=== PATIENT | female | born 1940 | race Caucasian/White ===

== ENCOUNTER 2021-02-01 15:22 | Outpatient (REF) | payer MEDICARE, SELFPAY ==
--- NOTE | ~2021-02-01 | MM_ITS ---
EXAMINATION: MM SCREENING DIGITAL BREAST TOMOSYNTHESIS, BILATERAL CLINICAL INFORMATION: Screening. Asymptomatic. The lifetime risk of breast cancer based on the Tyrer-Cuzick Model is 2%. COMPARISON: Mammography: 10/29/2019, 08/28/2018, 08/10/2017, 06/11/2014 TECHNIQUE: Digital breast tomosynthesis is performed in both the craniocaudal and mediolateral oblique views along with computer-aided detection (CAD). Synthesized 2D images are generated from the tomosynthesis. FINDINGS: There are scattered areas of fibroglandular density (ACR BI-RADS breast composition Category b). There are no significant changes from prior studies. Again, there is mild asymmetry of the breasts, left slightly larger. The parenchymal pattern is similar to prior exams. There is no developing density or interval mass or architectural abnormality. There are scattered bilateral benign round and coarse and ductal secretory calcifications. No suspicious calcifications. The axilla and skin contours are unremarkable. MM/MM tomosynthesis screening BI IMPRESSION: No mammographic evidence of malignancy. ASSESSMENT: BI-RADS 2: Benign RECOMMENDATION: Routine annual mammography screening. This patient's information was entered into a reminder system with a target due date for their next mammogram.
== END 2021-02-01 15:23 | disposition home or self-care (01) ==
LOC: HO.MAMMO 15:22
PROVIDERS: PCP Internal Medicine; Visit Provider Internal Medicine
DX: Z12.31 Encounter for screening mammogram for malignant neoplasm of breast (principal)
CPT/HCPCS: 77063; 77067

== ENCOUNTER 2022-02-02 15:41 | Outpatient (REF) | payer MEDICARE, SELFPAY ==
--- NOTE | ~2022-02-02 | MM_ITS ---
EXAMINATION: MM SCREENING DIGITAL BREAST TOMOSYNTHESIS, BILATERAL CLINICAL INFORMATION: Screening. Asymptomatic. The lifetime risk of breast cancer based on the Tyrer-Cuzick Model is 2%. COMPARISON: Mammography: 02/01/2021, 10/29/2019, 08/28/2018 TECHNIQUE: Digital breast tomosynthesis is performed in both the craniocaudal and mediolateral oblique views along with computer-aided detection (CAD). Synthesized 2D images are generated from the tomosynthesis. FINDINGS: There are scattered areas of fibroglandular density (ACR BI-RADS breast composition Category b). There are no significant masses, abnormal calcifications, or other abnormalities. Parenchymal pattern is similar to prior studies. No developing density. No architectural abnormality. Numerous bilateral scattered punctate and coarse round calcifications and scattered ductal secretory calcifications are again demonstrated. There are no significant changes from prior studies. MM/MM tomosynthesis screening BI IMPRESSION: No mammographic evidence of malignancy. ASSESSMENT: BI-RADS 2: Benign RECOMMENDATION: Routine annual mammography screening. This patient's information was entered into a reminder system with a target due date for their next mammogram.
== END 2022-02-02 15:42 | disposition home or self-care (01) ==
LOC: HO.MAMMO 15:41
PROVIDERS: Visit Provider Internal Medicine
DX: Z12.31 Encounter for screening mammogram for malignant neoplasm of breast (principal)
CPT/HCPCS: 77063; 77067

== ENCOUNTER 2023-03-24 13:28 | Outpatient (REF) | payer MEDICARE, SELFPAY ==
--- NOTE | ~2023-03-24 | MM_ITS ---
EXAMINATION: MM SCREENING DIGITAL BREAST TOMOSYNTHESIS, BILATERAL CLINICAL INFORMATION: Screening. Asymptomatic. The lifetime risk of breast cancer based on the Tyrer-Cuzick Model is 0.7%. COMPARISON: Mammography: This study is compared with prior exams dating back to 2019. TECHNIQUE: Digital breast tomosynthesis is performed in both the craniocaudal and mediolateral oblique views along with computer-aided detection (CAD). Synthesized 2D images are generated from the tomosynthesis. FINDINGS: There are scattered areas of fibroglandular density (ACR BI-RADS breast composition Category b). There are no significant masses, abnormal calcifications, or other abnormalities. There are scattered benign calcifications in each breast. MM/MM tomosynthesis screening BI IMPRESSION: No mammographic evidence of malignancy. ASSESSMENT: BI-RADS BI-RADS 2 - Benign Findings RECOMMENDATION: Routine annual mammography screening. 1 year F/U This examination should not preclude the clinical evaluation of a suspicious palpable abnormality. This patient's information was entered into a reminder system with a target due date for their next mammogram.
== END 2023-03-24 13:29 | disposition home or self-care (01) ==
LOC: HO.MAMMO 13:28
PROVIDERS: PCP Internal Medicine; Visit Provider Internal Medicine
DX: Z12.31 Encounter for screening mammogram for malignant neoplasm of breast (principal)
CPT/HCPCS: 77063; 77067

== ENCOUNTER → 2023-03-24 13:30 | Outpatient (BNV) | payer MEDICARE, SELFPAY | PROVIDERS: PCP Internal Medicine; Visit Provider Radiology Diagnostic Radiology | DX: Z12.31 Encounter for screening mammogram for malignant neoplasm of breast (principal) | CPT/HCPCS: 77063; 77067 ==

== ENCOUNTER 2023-09-13 13:20 | Outpatient (REF) | payer MEDICARE, SELFPAY ==
--- NOTE | ~2023-09-13 | MM_ITS ---
EXAMINATION: BONE DENSITOMETRY CLINICAL INDICATION: Osteopenia. COMPARISON: Baseline BD dated 02/26/2008 for the spine and left hip; this is the baseline for the left forearm radius 33%. TECHNIQUE: Using a [employer] DXA System (software version: 13.1) manufactured by [employer], dual-energy x-ray absorptiometry was performed of the lumbar spine and left hip and left forearm radius 33%. The images are of good technical quality. Summary results are attached. FINDINGS: LEFT FEMUR, NECK: Current: BMD 0.871 g/cm2, Z-score 1.2, T-score -1.2, osteopenia. Baseline: BMD 1.092 g/cm2. LEFT FEMUR, TOTAL: Current: BMD 0.923 g/cm2, Z-score 1.6, T-score -0.7, normal, 20.8% decrease from baseline (<5% change is not significant). Baseline: BMD 1.166 g/cm2. AP SPINE L1-L4: Current: BMD 1.121 g/cm2, Z-score 1.4, T-score -0.5, normal, 5.3% decrease from baseline (<5% change is not significant). Baseline: BMD 1.184 g/cm2. LEFT FOREARM RADIUS 33%: BMD 0.676 g/cm2, Z-score 0.8, T-score -2.3, osteopenia. IDENTIFIED RISK FACTORS: Menopause, secondary osteoporosis. HISTORY OF FRACTURE: None listed. MEDICATIONS: None listed. MM/XR DEXA axial skeleton IMPRESSION: 1. DIAGNOSIS: Osteopenia based on the lowest T-score value of -2.3 in the forearm radius 33% applying World Health Organization criteria. 2. 10-YEAR FRACTURE RISK PREDICTION, FRAX: Major osteoporotic fracture (clinical spine, forearm, hip or shoulder) 12.6%. Hip fracture 3.1%. 3. Treatment Recommendations: NOF guidelines recommend consideration for treatment in postmenopausal women and men age 50 and older presenting with the following: -A hip or vertebral (clinical or morphometric) fracture. -T-score less than or equal to -2.5 at the femoral neck or spine after appropriate evaluation to exclude secondary causes. -Low bone mass at the hip or spine and a 10-year fracture probability by FRAX of greater than or equal to 3% for hip fracture or greater than or equal to 20% for major osteoporotic fracture based on the [place] adapted WHO algorithm. 4. Other Recommendations: All treatment decisions require clinical judgment and consideration of individual patient factors, including patient preferences, comorbidities, previous drug use, risk factors not captured in the FRAX model (e.g. frailty, falls, vitamin D deficiency, increased bone turnover, interval significant decline in bone density) and possible under or overestimation of fracture risk by FRAX. Additional medical evaluation for secondary cause of low bone mineral density may be appropriate. FUTURE SCAN RECOMMENDATION: People with diagnosed cases of osteoporosis or at high risk for fracture should have regular bone mineral density tests. For patients eligible for Medicare, routine testing is allowed once every 2 years. The testing frequency can be increased to one year for patients who have rapidly progressing disease, those who are receiving or discontinuing medical therapy to restore bone mass, or have additional risk factors.
== END 2023-09-13 13:21 | disposition home or self-care (01) ==
LOC: HO.MAMMO 13:20
PROVIDERS: PCP Internal Medicine; Visit Provider Internal Medicine
DX: Z13.820 Encounter for screening for osteoporosis (principal); Z78.0 Asymptomatic menopausal state; M85.89 Other specified disorders of bone density and structure, multiple sites
CPT/HCPCS: 77080

== ENCOUNTER 2024-03-27 13:14 | Outpatient (REF) | payer MEDICARE, SELFPAY ==
--- NOTE | ~2024-03-27 | MM_ITS ---
EXAMINATION: MM SCREENING DIGITAL BREAST TOMOSYNTHESIS, BILATERAL CLINICAL INFORMATION: Screening. Asymptomatic. COMPARISON: Mammography: This study is compared with prior exams dating back to 2019. TECHNIQUE: Digital breast tomosynthesis is performed in both the craniocaudal and mediolateral oblique views along with computer-aided detection (CAD). Synthesized 2D images are generated from the tomosynthesis. FINDINGS: There are scattered areas of fibroglandular density (ACR BI-RADS breast composition Category b). There are no significant masses, abnormal calcifications, or other abnormalities. There are bilateral benign calcifications in each breast. These are unchanged. MM/MM tomosynthesis screening BI IMPRESSION: No mammographic evidence of malignancy. ASSESSMENT: BI-RADS BI-RADS 2 - Benign Findings RECOMMENDATION: Routine annual mammography screening. 1 year F/U This examination should not preclude the clinical evaluation of a suspicious palpable abnormality. This patient's information was entered into a reminder system with a target due date for their next mammogram. Electronically signed by: Pam Wilhelm MD 04/19/2024 12:14 PM EDT
== END 2024-03-27 13:15 | disposition home or self-care (01) ==
LOC: HO.MAMMO 13:14
PROVIDERS: PCP Internal Medicine; Visit Provider Internal Medicine
DX: Z12.31 Encounter for screening mammogram for malignant neoplasm of breast (principal)
CPT/HCPCS: 77063; 77067

== ENCOUNTER → 2024-03-27 13:15 | Outpatient (BNV) | payer MEDICARE, SELFPAY | PROVIDERS: PCP Internal Medicine; Visit Provider Radiology Diagnostic Radiology | DX: Z12.31 Encounter for screening mammogram for malignant neoplasm of breast (principal) | CPT/HCPCS: 77063; 77067 ==

== ENCOUNTER 2025-05-14 13:51 | Outpatient (REF) | payer MEDICARE, SELFPAY ==
--- OUTSIDE RECORDS SUMMARY | 2023-11-17 07:00 | XMS_ITS ---
Author Organization [facility] Address [address] [place] [address] Care Team Providers Care Customer Advisor Specialist Name Role Phone Inocencio Ponce MD Primary Care Provider Unavailab Kris Orosco Unavailable [phone] Lorenz Encounters Encounter Location Date Provider Diagnosis [address] [address] 11/17/2023 Kris James Plan Of Treatment No Information Progress Notes * Josselyn VELASCO EDOB: [birth year] (84 yo F)Acc No.[id number]:11/17/2023 Progress Note Patient: Josselyn MONTEIRO Provider: Marielena James DPM :1940 A ge:82 Y S ex:Female Date:11/17/2023 Address:[facility] [place], [id number] Pcp:Inocencio Ponce MD Subjective: * Chief Complaints: * [address] Lorenz[address] * Medical History: Objective: * Vitals: Assessment: Plan: * Treatment: * Images: * The named appointment provid er may or may not be the originator of this progress note, and it is not deemed complete until electronically signed by the appointment provider. Sign off status: Pending * Provider: Marielena James DPM Date: 11/17/2023 Generated for Printi ng/Faesdrasg/eTransmitting on: 05/14/2025 04:22 PM EDT
--- OUTSIDE RECORDS SUMMARY | 2025-01-29 06:50 | XMS_ITS ---
Author Organization [facility] Address [facility] [place], [place] [id number] Care Team Providers Care Civil Lawyer Name Role Phone GIL SOLIZ Primary Care Provider REASON FOR VISIT () CT scan Results Encounters Encounter Location Date Provider Diagnosis [facility] [address] [place] [address] 01/29/2025 GIL SOLIZ PLAN OF TREATMENT Next Appt Details Provider Name:GIL SOLIZ , 07/04/2025 01:00:00 PM, [address] [place], [phone],
--- OUTSIDE RECORDS SUMMARY | 2025-02-14 10:12 | XMS_ITS ---
Author Organization [facility] Address [address] [place], [place] [id number] Care Team Providers Care Scale Model Maker Name Role Phone GIL SOLIZ Primary Care Provider [phone] REASON FOR VISIT Syringe/[place] Refills MEDICATIONS Medication SIG (Take, Route, Frequency, Duration) Notes Start Date End Date Status Syringe/Needle (Disp) 25G X 1 3 ML as directed intrathecal by MD once a month for 90 day(s) Active Encounters Encounter Location Date Provider Diagnosis [address] [address] 02/14/2025 GIL MARTÍNEZ B12 deficiency E53.8 ASSESSMENTS Encounter Date Diagnosis Assessment Notes Treatment Notes Treatment Clinical Notes Section Notes 02/14/2025 B12 deficiency (ICD-10 - E53.8) PLAN OF TREATMENT Medication Medication Name Sig Start Date Stop Date Notes Syringe/Needle (Disp) 25G X 1 3 ML as directed intrathecal by MD once a month for 90 day(s) Next Appt Details Provider Name:GIL SOLIZ , 07/04/2025 01:00:00 PM, [address] [place] [address], [phone],
--- OUTSIDE RECORDS SUMMARY | 2025-03-11 09:30 | XMS_ITS ---
Author Organization [facility] Address [address] [place], [place] [id number] Care Team Providers Care Card Assembler Name Role Phone GIL SOLIZ Primary Care Provider ALLERGIES Allergen (clinical drug ingredient) Drug/Non Drug Allergy documented on EMR Reaction Allergy Type Onset Date Status codeine Codeine Codeine Drug Allergy 12/01/2008 Active trazodone traZODone agitation Drug Allergy Active REASON FOR VISIT 41/ AWV MEDICATIONS Medication SIG (Take, Route, Frequency, Duration) Notes Start Date End Date Status Synthroid 100 MCG 1 tablet in the morn ing on an empty stomach Orally Once a day Active amLODIPine Besylate 5 MG 1 tablet Orally Once a day Active Atorvastatin Calcium 20 MG 1 tablet Orally Once a day Active Lisinopril 40 MG 1 tablet Orally Once a day Active Syringe/Needle (Disp) 25G X 1 3 ML as directed intrathecal by MD once a month for 90 day(s) Active Sertraline HCl 50 MG 1 tablet Orally Onc e a day for 90 days Active Advair HFA 45-21 MCG/ACT 2 puffs Inhalat ion Twice a day Active Cyanocobalamin 1000 MCG/ML INJECT 1,000 MCG BY INTRAMUSCULAR ROUTE EVERY DAY X 1 WEEK THEN WEEKLY X 4WEEKS THEN ONCE A MONTH for 90 Active traMADol HCl 50 MG 1 tablet as needed Orally 3 times daily for 7 days 12/17/2024 Not-Taking Albuterol Sulfate (2.5 MG/3ML) 0.083% 3 mL as needed Inhalation every 6 hrs 05/30/2024 Active Furosemide 20 MG 1 tablet Orally Once a day for 90 days Active Acetaminophen 500 MG 2 tablets as needed Orally Twice a day Active SOCIAL HISTORY Tobacco Use: Social History Observation Description Date Details (start date - stop date) Former Smoker NA - NA Sex Assigned At : Social History Observation Description Sex Assigned At Unknown Smoking Question Answer Notes Are you a: former smoker How long has it been since you last smoked? 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) Active confirmed [id number] VITAL SIGNS Height 62.50 in 03/11/2025 Weight 141 lbs 03/11/2025 Blood pressure systolic 122 mm Hg 03/11/20 25 Blood pressure diastolic 72 mm Hg 025 BMI 25.38 kg/m2 03/11/2025 Encounters Encounter Location Date Provider Diagnosis [facility] [address] [place] [address] 03/11/2025 GIL LA VALLE Chronic obstructive pulmonary disease, unspecified COPD type J44.9 ; Acquired hypothyroidism E03.9 ; Mixed hyperlipidemia E78.2 ; Degeneration of intervertebral disc of lumbar region with discogenic back pain and lower extremity pain M51.362 ; Essential (primary) hypertension I10 and Encounter for general adult medical examination with abnormal findings Z00.01 ASSESSMENTS Encounter Date Diagnosis Assessment Notes Treatment Notes Treatment Clinical Notes Section Notes 03/11/2025 Chronic obstructive pulmonary disease, unspecified COPD type (ICD-10 - J44.9) 1. COPD: Stable on current bronchodilators . Will call with any signs of flares 2. Hypothyroidism: Will update TSH and current level of supplementation 3. Hyperlipidemia: Will update lipids on current atorvastatin 4. Lumbar degenerative disc disease: Stable with periodic injections at SV pain. 5. Hypertension: Stable on present regimen. No changes made today 6. Routine healthcare maintenance: She will update fasting blood work. She will set up her mammogram for next month at [place]. She is up-to-date with vaccinations 03/11/2025 Acquired hypothyroidism (ICD-10 - E03.9) 1. COPD: Stable on current bronchodilators . Will call with any signs of flares 2. Hypothyroidism: Will update TSH and current level of supplementation 3. Hyperlipidemia: Will update lipids on current atorvastatin 4. Lumbar degenerative disc disease: Stable with periodic injections at SV pain. 5. Hypertension: Stable on present regimen. No changes made today 6. Routine healthcare maintenance: She will update fasting blood work. She will set up her mammogram for next month at [place]. She is up-to-date with vaccinations 03/11/2025 Mixed hyperlipidemia (ICD-10 - E78.2) 1. COPD: Stable on current bronchodilators . Will call with any signs of flares 2. Hypothyroidism: Will update TSH and current level of supplementation 3. Hyperlipidemia: Will update lipids on current atorvastatin 4. Lumbar degenerative disc disease: Stable with periodic injections at SV pain. 5. Hypertension: Stable on present regimen. No changes made today 6. Routine healthcare maintenance: She will update fasting blood work. She will set up her mammogram for next month at [place]. She is up-to-date with vaccinations 03/11/2025 Degeneration of intervertebral disc of lumbar region with discogenic back pain and lower extremity pain (ICD-10 - M51.362) 1. COPD: Stable on current bronchodilators . Will call with any signs of flares 2. Hypothyroidism: Will update TSH and current level of supplementation 3. Hyperlipidemia: Will update lipids on current atorvastatin 4. Lumbar degenerative disc disease: Stable with periodic injections at SV pain. 5. Hypertension: Stable on present regimen. No changes made today 6. Routine healthcare maintenance: She will update fasting blood work. She will set up her mammogram for next month at [place]. She is up-to-date with vaccinations 03/11/2025 Essential (primary) hypertension (ICD-10 - I10) 1. COPD: Stable on current bronchodilators . Will call with any signs of flares 2. Hypothyroidism: Will update TSH and current level of supplementation 3. Hyperlipidemia: Will update lipids on current atorvastatin 4. Lumbar degenerative disc disease: Stable with periodic injections at SV pain. 5. Hypertension: Stable on present regimen. No changes made today 6. Routine healthcare maintenance: She will update fasting blood work. She will set up her mammogram for next month at [place]. She is up-to-date with vaccinations 03/11/2025 Encounter for general adult medical examination with abnormal findings (ICD-10 - Z00.01) 1. COPD: Stable on current bronchodilators . Will call with any signs of flares 2. Hypothyroidism: Will update TSH and current level of supplementation 3. Hyperlipidemia: Will update lipids on current atorvastatin 4. Lumbar degenerative disc disease: Stable with periodic injections at SV pain. 5. Hypertension: Stable on present regimen. No changes made today 6. Routine healthcare maintenance: She will update fasting blood work. She will set up her mammogram for next month at [place]. She is up-to-date with vaccinations PLAN OF TREATMENT Medication Medication Name Sig Start Date Stop Date Notes Synthroid 100 MCG 1 tablet in the morn ing on an empty stomach Orally Once a day amLODIPine Besylate 5 MG 1 tablet Orally Once a day Atorvastatin Calcium 20 MG 1 tablet Orally Once a day Lisinopril 40 MG 1 tablet Orally Once a day Advair HFA 45-21 MCG/ACT 2 puffs Inhalat ion Twice a day Albuterol Sulfate (2.5 MG/3M L) 0.083% 3 mL as needed Inhalation every 6 hrs 05/30/2024 Next Appt Details Follow Up: 3 Months, Reason: Provider Name:GIL SOLIZ , 07/04/2025 01:00:00 PM, [address] [place] [address], [phone], Progress Notes * Examination Category Sub-Category Detail Notes Category Not es General Examination HEENT: PERRLA, EOMI bilatera lly, nose clear Neck: supple, no lymphaden opathy, no thyromegaly Heart: RSR, normal S1S2 Lungs: clear to auscultatio n Abdomen: soft, non tender/non distended, no rebound tenderness, no guarding or rigidity Extremities: no edema General Appearance no apparent distress , pleasant Skin: normal, no rash Neuro alert and oriented x 3, gait normal Oral cavity: no lesions Peripheral pulses: Bilateral radial pre sent, Bilateral posterior tibial present, BilateralCarotids present No Bruits, Bilateral radial present Back: no CVA tenderness, s traight leg raise normal, , no spinal tenderness Lymphatics No nodes in neck Psych: oriented X 3, affect normal
--- OUTSIDE RECORDS SUMMARY | 2025-03-11 10:00 | XMS_ITS ---
Author Organization [facility] Address [address], [place] [phone] Care Team Providers Care Assistant Farm Operations Manager Name Role Phone GIL SOLIZ Primary Care Provider ALLERGIES Allergen (clinical drug ingredient) Drug/Non Drug Allergy documented on EMR Reaction Allergy Type Onset Date Status codeine Codeine Codeine Drug Allergy 12/01/2008 Active trazodone traZODone agitation Drug Allergy Active REASON FOR VISIT 1 yr follow up (AWV w/nursing 1st) SOCIAL HISTORY Tobacco Use: Social History Observation Description Date Details (start date - stop date) Former Smoker NA - NA Sex Assigned At : Social History Observation Description Sex Assigned At Unknown Smoking Question Answer Notes Are you a: former smoker How long has it been since you last smoked? > 10 years Alcohol Screen Question Answer Notes Did you have a drink containing alcohol in the p ast year? No Points 0 Interpretation Negative VITAL SIGNS Height 62.50 in 03/11/2025 Weight 141 lbs 03/11/2025 Blood pressure systolic 122 mm Hg 03/11/20 25 Blood pressure diastolic 72 mm Hg 025 BMI 25.38 kg/m2 03/11/2025 Encounters Encounter Location Date Provider Diagnosis [facility] [address] [place] [address] 03/11/2025 GIL SOLIZ Medicare annual wellness visit, subsequent Z00.00 ASSESSMENTS Encounter Date Diagnosis Assessment Notes Treatment Notes Treatment Clinical Notes Section Notes 03/11/2025 Medicare annual wellness visit, subsequent (ICD-10 - Z00.00) AWV reviewed with pt PLAN OF TREATMENT Treatment Notes Assessment Notes Medicare annual wellness visit, subseque nt AWV reviewed with pt Next Appt Details Follow Up: prn, Reason: Provider Name:GIL SOLIZ , 07/04/2025 01:00:00 PM, [address] [facility], [place], [address], History and Physical Notes * HPI (History of Present Illness) Category Sub-Category Detail Notes Category Not es Depression Screening PHQ-9 Little inte rest or pleasure in doing things: Not at all Feeling down,depressed or hopeless: Lucretia ral days Trouble falling or staying asleep, or sl eeping too much: Several days Feeling tired or having little energy: S everal days Poor appetite or overeating: Not at all Feeling bad about yourself o r that you are a failure or have let yourself or your family down: Several days Trouble concentrating on thi ngs, such as reading the newspaper or watching television: Not at all Moving or speaking so slowly that other people could have notice. Or the opposite of being so fidgety or restless that you have been moving around a lost more that usual: Not at all Thoughts that you would be b vinod off , or of hurting yourself in some way: Not at all Total Score: 4 Interpretation: Minimal Depression
--- OUTSIDE RECORDS SUMMARY | 2025-03-13 02:22 | XMS_ITS ---
Author Organization [facility] Address [address] [place] [id number] Care Team Providers Care Guest Specialist Name Role Phone GIL SOLIZ Primary Care Provider REASON FOR VISIT Labs Encounters Encounter Location Date Provider Diagnosis [address] [address] 03/13/2025 GIL SOLIZ PLAN OF TREATMENT Next Appt Details Provider Name:GIL SOLIZ , 07/04/2025 01:00:00 PM, [address] [place], [address],
--- NOTE | ~2025-05-14 | MM_ITS ---
EXAMINATION: MM SCREENING DIGITAL BREAST TOMOSYNTHESIS, BILATERAL CLINICAL INFORMATION: Screening. Asymptomatic. COMPARISON: Comparison made to multiple prior, most recent March 27, 2024, and most remote August 10, 2017. TECHNIQUE: Digital breast tomosynthesis is performed in mediolateral oblique and craniocaudal views along with computer-aided detection (CAD). Synthesized 2D images are generated from the tomosynthesis. FINDINGS: BREAST COMPOSITION: There are scattered areas of fibroglandular density. RIGHT BREAST: Asymmetry in the upper breast middle depth at 8 cm from the nipple on the MLO view. No suspicious calcifications are seen. LEFT BREAST: No significant masses, suspicious calcifications or other abnormalities are seen. MM/MM tomosynthesis screening BI IMPRESSION: RIGHT BREAST: Asymmetry in the upper breast middle depth. LEFT BREAST: Negative, no mammographic evidence of malignancy. Normal interval follow-up is recommended in 12 months. ASSESSMENT: BI-RADS: Category 0: Incomplete - Need additional Imaging Evaluation RECOMMENDATION: 1. Additional views of the right breast 2. Targeted ultrasound if warranted after review of the additional views. 3. Radiology department staff will contact the patient for additional imaging. FOLLOW-UP: Additional Imaging required This examination should not preclude the clinical evaluation of a suspicious palpable abnormality. This patient's information was entered into a reminder system with a target due date for their next mammogram. Electronically signed by: Randolph Funk MD 05/16/2025 06:49 PM EDT
--- OUTSIDE RECORDS SUMMARY | 2025-05-14 16:21 | XMS_ITS | Clinical Summary ---
Author Organization [facility] Address [address] [place] [address] Care Team Providers Care Sensitometrist Name Role Phone Inocencio Ponce MD Primary Care Provider Unavail able Allergies Active Allergy Reactions Criticality Noted Date Comments Codeine Nausea And Vomiting 09/15/2021 Medications Medication Sig Dispensed Refills Start Date End Date Status amLODIPine (NORVASC) tablet 5 mg 0 06/26/2021 Active atorvastatin (LIPITOR) tablet 20 mg 0 08/30/2021 Active furosemide (LASIX) 20 MG tablet 0 08/17/2021 Active HYDROcodone-aceta minophen (NORCO) 5-325 MG per tablet hydrocodone 5 mg-acetaminophen 325 mg tablet TAKE 1 TABLET EVERY 4 TO 6 HOURS NEEDED 0 Active Synthroid 100 MCG tablet 0 07/27/2021 Active lisinopril (PRINIVIL,ZESTRIL ) tablet 40 mg 0 07/28/2021 Active methocarbamol (ROBAXIN) 500 MG tablet methocarbamol 500 mg tablet TAKE 1 TABLET BY MOUTH 3 TIMES A DAY NEEDED 0 Acti ve naproxen (NAPROSYN) 500 MG tablet 0 08/17/2021 Active sertraline (ZOLOFT) 50 MG tablet 0 07/28/2021 Active sulfamethoxazole- trimethoprim (BACTRIM DS) 800-160 MG per tablet sulfamethoxazole 800 mg-trimethoprim 160 mg tablet TAKE 1 TABLET BY MOUTH EVERY 12 HOURS FOR 5 DAYS 0 Active timolol (TIMOPTIC) 0.5 % ophthalmic solution timolol 0.5 % eye drops INSTILL 1 DROP INTO AFFECTED EYE(S) BY OPHTHALMIC ROUTE 2 TIMES PER DAY 0 Active Family History Medical History Relation Name Comments Cancer Father Arthritis Mother Cancer Mother Hyperlipidemia Mother Relation Name Status Comments Father Mother Social History Tobacco Use Types Packs/Day Years Used Date Smoking Tobacco: Former Smokeless Tobacco: Never Alcohol Use Standard Drinks/Week Comments Never 0 (1 standard drink = 0.6 oz pur e alcohol) Sex and Gender Information Value Date Recorded Sex Assigned at Not on file Gender Identity Not on file Sexual Orientation Not on file Job Start Date Occupation Industry Not on file Not on file Not on file Last Filed Vital Signs Vital Sign Reading Time Taken Comments Blood Pressure - - Pulse - - Temperature - - Respiratory Rate - - Oxygen Saturation - - Inhaled Oxygen Concentration - - Weight 70.3 kg (155 lb) 09/15/2021 11:24 AM EST Height 162.6 cm (5' 4 ) 09/15/2021 11:24 AM EST Body Mass Index 26.61 09/15/2021 11:24 AM EST Plan of Treatment Health Maintenance Due Date Last Done Comments COVID-19 Vaccine (#1) 06/28/1941 Depression Screening 1950 Preventative Health Evaluation 1956 DTap / Tdap / Td (1 - Tdap) 1957 Shingrix-Zoster Vaccine (1 of 2) 1988 Fall Risk Assessment 12/27/2003 Osteoporosis Screening (DEXA Scan) 12/27/2003 Pneumococcal Vaccine (1 of 1 - PCV) 12/27/2003 RSV Adult > 60+ Yrs or Pregn ant (1 - 1-dose 75+ series) 2013 Influenza Vaccine (#1) 2025 Hepatitis B Vaccines Aged Out No long er eligible based on patient's age to complete this topic RSV Ped < 20 months Aged Out No longe r eligible based on patient's age to complete this topic Care Teams Sensitometrist Relationship Specialty Start Date End Date Inocencio Ponce MD PCP - General Internal Medicine 08/19/21
--- OUTSIDE RECORDS SUMMARY | 2025-05-14 16:22 | XMS_ITS | Patient Health Record ---
Author Organization [facility] Address [address] [place], [place] [id number] Care Team Providers Care Counter Person Name Role Phone GIL SOLIZ Primary Care Provider [phone] [facility], NURSING Unavailable [phone] ALLERGIES Allergen (clinical drug ingredient) Drug/Non Drug Allergy documented on EMR Reaction Allergy Type Onset Date Status codeine Codeine Codeine Drug Allergy 12/01/2008 Active trazodone traZODone agitation Drug Allergy Active REASON FOR REFERRAL No Information MEDICATIONS Medication SIG (Take, Route, Frequency, Duration) Notes Start Date End Date Status Synthroid 100 MCG 1 tablet in the morn ing on an empty stomach Orally Once a day Active Sertraline HCl 50 MG 1 tablet Orally Onc e a day for 90 days Active Advair HFA 45-21 MCG/ACT 2 puffs Inhalat ion Twice a day Active Cyanocobalamin 1000 MCG/ML INJECT 1,000 MCG BY INTRAMUSCULAR ROUTE EVERY DAY X 1 WEEK THEN WEEKLY X 4WEEKS THEN ONCE A MONTH for 90 Active Atorvastatin Calcium 20 MG 1 tablet Orally Once a day Active amLODIPine Besylate 5 MG TAKE 1 TABLET B Y MOUTH EVERY DAY for 90 Active Lisinopril 40 MG 1 tablet Orally Once a day Active traMADol HCl 50 MG 1 tablet as needed Orally 3 times daily for 7 days 12/17/2024 Not-Taking Albuterol Sulfate (2.5 MG/3ML) 0.083% 3 mL as needed Inhalation every 6 hrs 05/30/2024 Active Furosemide 20 MG 1 tablet Orally Once a day for 90 days Active Acetaminophen 500 MG 2 tablets as needed Orally Twice a day Active Syringe/Needle (Disp) 25G X 1 3 ML as directed intrathecal by once a month for 90 day(s) Active IMMUNIZATIONS Vaccine Route Administration Date Status Comme nts Covid Unknown 06/13/2022 Administered Influenza, Fluarix Quad Unknown 06/03/2014 Administered Influenza, Fluzone HD 65+ IM Intramuscular 05/30/2024 Admi nistered Pfizer COVID-19,mRNA, LNP-S, PF, 30mcg/0.3mL dose Unknown 09/27/2020 Administered Pfizer COVID-19,mRNA, LNP-S, PF, 30mcg/0.3mL dose Unknown 10/19/2020 Administered Pneumococcal Prevnar 13 IM Intramuscular 09/04/2006 Admini stered Pneumococcal Prevnar 13 IM Intramuscular 06/10/2015 Admini stered Pneumococcal, PPV 23 Unknown 09/04/2006 Administered RonnicNMC24 IM Intramuscular 08/31/2023 Administered SARSCOV2 VAC BVL 3MCG/0.2ML Pfizer Unknown 07/26/2021 Administered Td (Tetanus Diphtheria) Unknown 12/03/2008 Administered Td (Tetanus Diphtheria) Unknown 05/17/2019 Administered TDAP Unknown 12/08/2024 Administered Zoster recombinant Unknown 06/12/2012 Administered SOCIAL HISTORY Tobacco Use: Social History Observation [...] ast year? No Points 0 Interpretation Negative PROBLEMS Problem Type ICD Code Onset Dates Problem Status W/U Status Risk SNOMED Code Notes Problem Acquired hypothyroidism (E03.9) Active confirmed 969304708 Problem Chronic obstructive pulmonary disease, unspecified COPD type (J44.9) Active confirmed 59215060 Problem Primary osteoarthritis of right knee (M17.11) Active confirmed 984230603215895 Problem Degeneration of intervertebral disc of lumbar region with discogenic back pain and lower extremity pain (M51.362) Active confirmed 67468183 Problem Essential (primary) hypertension (I10) 07/08/20 Active confirmed Essential hypertension (94205776) Problem Mixed hyperlipidemia (E78.2) 07/08/20 Active confirmed Mixed hyperlipidemia (603629292) VITAL SIGNS Blood pressure diastolic 72 mm Hg 03/11/2025 Height 62.50 in 03/11/2025 Blood pressure systolic 122 mm Hg 03/11/2025 Weight 141 lbs 03/11/2025 BMI 25.38 kg/m2 03/11/2025 Encounters Encounter Location Date Provider Diagnosis [address] [address] 05/30/2024 GIL SOLIZ Chronic obstructive pulmonary disease, unspecified COPD type J44.9 ; Essential (primary) hypertension I10 ; Primary osteoarthritis of right knee M17.11 and Hyponatremia E87.[address] [address] 05/30/2024 [facility] Encounter for administration of vaccine Z23 [address] [address] 06/02/2024 [place] [id number] 07/31/[address] [address] 07/31/2024 [place] COVID 079.[address] [address] 09/13/2024 GIL SOLIZ Pruritus L29.9 ; Chronic obstructive pulmonary disease, unspecified COPD type J44.9 and Essential (primary) hypertension I10 [address] [address] 12/10/[address] [address] 12/10/2024 GIL SOLIZ Skin tear of right upper arm without complication, initial encounter S41.111A ; Left foot pain M79.672 ; Fall, initial encounter W19.XXXA ; Essential (primary) hypertension I10 and Chronic obstructive pulmonary disease, unspecified COPD type J44.[address] [address] 12/10/[address] [address] 12/17/2024 GIL SOLIZ Disc degeneration, lumbar M51.[address] [address] 01/27/2025 [place] [address] [place] [address] 01/27/2025 [facility] Right flank pain R10 .9 ; Essential (primary) hypertension I10 and Chronic obstructive pulmonary disease, unspecified COPD type J44.[address] [address] 01/28/[address] [address] 01/29/[address] [address] 02/14/2025 [facility] B12 deficiency E53.[address] [address] 03/11/2025 [facility] Chronic obstructive pulmonary disease, unspecified COPD type J44.9 ; Acquired hypothyroidism E03.9 ; Mixed hyperlipidemia E78.2 ; Degeneration of intervertebral disc of lumbar region with discogenic back pain and lower extremity pain M51.362 ; Essential (primary) hypertension I10 and Encounter for general adult medical examination with abnormal findings Z00.[address] [address] 03/11/2025 [facility] Medicare annual wellness visit, subsequent Z00.[address] [address] 03/13/2025 [facility] ASSESSMENTS Encounter Date Diagnosis Assessment Notes Treatment Notes Treatment Clinical Notes Section Notes 02/14/2025 B12 deficiency (ICD-10 - E53.8) 01/27/2025 Right flank pain (ICD-10 - R10.9) 1. Right flank pain: Question possible stone. Question infection such as UTI or pyelonephritis. Question possibly musculoskeletal in origin. Plan to check a CT scan and laboratory studies 2. Hypertension: Stable on present regimen. No changes made today 3. COPD: No recent flares of symptoms. Will continue current bronchodilators 01/27/2025 Essential (primary) hypertension (ICD-10 - I10) 1. Right flank pain: Question possible stone. Question infection such as UTI or pyelonephritis. Question possibly musculoskeletal in origin. Plan to check a CT scan and laboratory studies 2. Hypertension: Stable on present regimen. No changes made today 3. COPD: No recent flares of symptoms. Will continue current bronchodilators 12/17/2024 Disc degeneration, lumbar (ICD-10 - M51.36) 03/11/2025 Medicare annual wellness visit, subsequent (ICD-10 - Z00.00) AWV reviewed with pt 03/11/2025 Chronic obstructive pulmonary disease, unspecified COPD type (ICD-10 - J44.9) 1. COPD: Stable on current bronchodilators. Will call with any signs of flares [...] up her mammogram for next month at [place]. She is up-to-date with vaccinations 03/11/2025 Acquired hypothyroidism (ICD-10 - E03.9) 1. COPD: Stable on current bronchodilators. Will call with any signs of flares [...] up her mammogram for next month at [place]. She is up-to-date with vaccinations 12/10/2024 Skin tear of right upper arm without complication, initial encounter (ICD-10 - S41.111A) 1. Right elbow skin tear: Wound was cleaned. Xeroform applied with overlying Coban and then Tubigrip. Patient will change every 1 to 2 days 2. Left foot pain: Appears consistent with ankle sprain. Pain is improving. It was x-rayed in the ER and there was no fracture. If not seeing continued improvement can consider podiatry 3. Fall: This appeared to have been mechanical and there were no preceding symptoms or dizziness. No further gait training needed at this time 4. Hypertension: Stable on present therapy. No changes made today 5. COPD: Stable on present bronchodilators. Will continue same 12/10/2024 Left foot pain (ICD-10 - M79.672) 1. Right elbow skin tear: Wound was cleaned. Xeroform applied with overlying Coban and then Tubigrip. Patient will change every 1 to 2 days 2. Left foot pain: Appears consistent with ankle sprain. Pain is improving. It was x-rayed in the ER and there was no fracture. If not seeing continued improvement can consider podiatry 3. Fall: This appeared to have been mechanical and there were no preceding symptoms or dizziness. No further gait training needed at this time 4. Hypertension: Stable on present therapy. No changes made today 5. COPD: Stable on present bronchodilators. Will continue same 07/31/2024 COVID (ICD9-CM - 079.89) 1. COVID: We will treat with Paxlovid. Dosing concerns and possible side effects were reviewed. Patient will isolate at home until she is afebrile for 24 hours and clearly improving- and then if feeling improved may leave the home wearing a mask for 5 days thereafter. Patient will call in the interim if any concerns arise Patient will hold her atorvastatin while on this medication 05/30/2024 Encounter for administration of vaccine (ICD-10 - Z23) HD influenza administered patient counseled and VIS provided 09/13/2024 Pruritus (ICD-10 - L29.9) 1. Pruritis: ? eczema- Rx Triamcinolone Follow 2. COPD STable on presnet therapy Follow 3. Hypertension: Well controlled on presmnt therapy No changes made 09/13/2024 Chronic obstructive pulmonary disease, unspecified COPD type (ICD-10 - J44.9) 1. Pruritis: ? eczema- Rx Triamcinolone Follow 2. COPD STable on presnet therapy Follow 3. Hypertension: Well controlled on presmnt therapy No changes made 05/30/2024 Chronic obstructive pulmonary disease, unspecified COPD type (ICD-10 - J44.9) 1. COPD: Stable on present bronchodilators. Albuterol renewed today. Will get flu shot today 2. Hypertension: Stable on present regimen. No changes made today 3. Osteoarthritis right knee: Recovering from total knee replacement. Doing well. Continue therapy 4. Hyponatremia: Noted in the hospital. Will recheck in the lab today to ensure this was a temporary perioperative issue 05/30/2024 Essential (primary) hypertension (ICD-10 - I10) 1. COPD: Stable on present bronchodilators. Albuterol renewed today. Will get flu shot today 2. Hypertension: Stable on present regimen. No changes made today 3. Osteoarthritis right knee: Recovering from total knee replacement. Doing well. Continue therapy 4. Hyponatremia: Noted in the hospital. Will recheck in the lab today to ensure this was a temporary perioperative issue 05/30/2024 Primary osteoarthritis of right knee (ICD-10 - M17.11) 1. COPD: Stable on present bronchodilators. Albuterol renewed today. Will get flu shot today 2. Hypertension: Stable on present regimen. No changes made today 3. Osteoarthritis right knee: Recovering from total knee replacement. Doing well. Continue therapy 4. Hyponatremia: Noted in the hospital. Will recheck in the lab today to ensure this was a temporary perioperative issue 09/13/2024 Essential (primary) hypertension (ICD-10 - I10) 1. Pruritis: ? eczema- Rx Triamcinolone Follow 2. COPD STable on presnet therapy Follow 3. Hypertension: Well controlled on presmnt therapy No changes made 12/10/2024 Fall, initial encounter (ICD-10 - W19.XXXA) 1. Right elbow skin tear: Wound was cleaned. Xeroform applied with overlying Coban and then Tubigrip. Patient will change every 1 to 2 days 2. Left foot pain: Appears consistent with ankle sprain. Pain is improving. It was x-rayed in the ER and there was no fracture. If not seeing continued improvement can consider podiatry 3. Fall: This appeared to have been mechanical and there were no preceding symptoms or dizziness. No further gait training needed at this time 4. Hypertension: Stable on present therapy. No changes made today 5. COPD: Stable on present bronchodilators. Will continue same 03/11/2025 Mixed hyperlipidemia (ICD-10 - E78.2) 1. COPD: Stable on current bronchodilators. Will call with any signs of flares 2. Hypothyroidism: Will update TSH and current level of supplementation 3. Hyperlipidemia: Will update lipids on current atorvastatin 4. Lumbar degenerative disc disease: Stable with periodic injections at [facility]. 5. Hypertension: Stable on present regimen. No changes made today 6. Routine healthcare maintenance: She will update fasting blood work. She will set up her mammogram for next month at [place]. She is up-to-date with vaccinations 01/27/2025 Chronic obstructive pulmonary disease, unspecified COPD type (ICD-10 - J44.9) 1. Right flank pain: Question possible stone. Question infection such as UTI or pyelonephritis. Question possibly musculoskeletal in origin. Plan to check a CT scan and laboratory studies 2. Hypertension: Stable on present regimen. No changes made today 3. COPD: No recent flares of symptoms. Will continue current bronchodilators 05/30/2024 Hyponatremia (ICD-10 - E87.1) 1. COPD: Stable on present bronchodilators. Albuterol renewed today. Will get flu shot today 2. Hypertension: Stable on present regimen. No changes made today 3. Osteoarthritis right knee: Recovering from total knee replacement. Doing well. Continue therapy 4. Hyponatremia: Noted in the hospital. Will recheck in the lab today to ensure this was a temporary perioperative issue 12/10/2024 Essential (primary) hypertension (ICD-10 - I10) 1. Right elbow skin tear: Wound was cleaned. Xeroform applied with overlying Coban and then Tubigrip. Patient will change every 1 to 2 days 2. Left foot pain: Appears consistent with ankle sprain. Pain is improving. It was x-rayed in the ER and there was no fracture. If not seeing continued improvement can consider podiatry 3. Fall: This appeared to have been mechanical and there were no preceding symptoms or dizziness. No further gait training needed at this time 4. Hypertension: Stable on present therapy. No changes made today 5. COPD: Stable on present bronchodilators. Will continue same 03/11/2025 Degeneration of intervertebral disc of lumbar region with discogenic back pain and lower extremity pain (ICD-10 - M51.362) 1. COPD: Stable on current bronchodilators. Will call with any signs of flares 2. Hypothyroidism: Will update TSH and current level of supplementation 3. Hyperlipidemia: Will update lipids on current atorvastatin 4. Lumbar degenerative disc disease: Stable with periodic injections at [facility]. 5. Hypertension: Stable on present regimen. No changes made today 6. Routine healthcare maintenance: She will update fasting blood work. She will set up her mammogram for next month at [place]. She is up-to-date with vaccinations 12/10/2024 Chronic obstructive pulmonary disease, unspecified COPD type (ICD-10 - J44.9) 1. Right elbow skin tear: Wound was cleaned. Xeroform applied with overlying Coban and then Tubigrip. Patient will change every 1 to 2 days 2. Left foot pain: Appears consistent with ankle sprain. Pain is improving. It was x-rayed in the ER and there was no fracture. If not seeing continued improvement can consider podiatry 3. Fall: This appeared to have been mechanical and there were no preceding symptoms or dizziness. No further gait training needed at this time 4. Hypertension: Stable on present therapy. No changes made today 5. COPD: Stable on present bronchodilators. Will continue same 03/11/2025 Essential (primary) hypertension (ICD-10 - I10) 1. COPD: Stable on current bronchodilators. Will call with any signs of flares [...] up her mammogram for next month at [place]. She is up-to-date with vaccinations 03/11/2025 Encounter for general adult medical examination with abnormal findings (ICD-10 - Z00.01) 1. COPD: Stable on current bronchodilators. Will call with any signs of flares [...] up her mammogram for next month at [place]. She is up-to-date with vaccinations PLAN OF TREATMENT Next Appt Details Provider Name:GIL SOLIZ , 07/04/2025 01:00:00 PM, [address] [place], [address], Insurance Providers Payer Name Payer Address Payer Phone Subscriber Number Group Number Insured Name Patient Relationship to Insured Coverage Start Date Coverage End Date MEDICARE [employer] [address] [place] [address] [id number] CORDELL MCLAUGHLIN Self - patient is the insured [employer] [address] [place] [address] [phone] [id number] CORDELL MCLAUGHLIN Self - patient is the insured MEDICAL (GENERAL) HISTORY Medical History History ICD Code Problems: Benign essential h ypertension, Added Date: 05/10/2015, Onset Date: 11/24/2009:Active Problems: Depressive disorde r, Added Date: 05/10/2015, Onset Date: 07/08/2009:Active Problems: History of polyp o f colon, Added Date: 05/10/2015, Onset Date: 07/08/2009:Active Problems: Malaise and fatigu e, Added Date: 05/10/2015, Onset Date: 02/08/2010:Active Surgical History Surgery Date(Month/Year) Right Total knee replacement 03/2024 Arthrocentesis of the right shoulder ramya nt : Urinary incontinence, Sx_Procedure : B ladder suspension Cholecystectomy : Hernia, inguinal, Sx_Procedure : Herni a repair, inguinal : Appendicitis, Sx_Procedure : Appendect camryn Hospitalization History Reason Date(Month/Year) [facility] 11/2024
--- OUTSIDE RECORDS SUMMARY | 2025-05-14 16:22 | XMS_ITS | Clinical Summary ---
Author Organization [facility] [address] [facility] Address [address] [place] [address] Care Team Providers Care Pipe Jeeper Name Role Phone Inocencio Ponce MD Primary Care Provider [phone] Allergies Active Allergy Reactions Criticality Noted Date Comments Codeine Vomiting 12/08/2024 Medications SYNTHROID 100 mcg tablet 1 tablet in the morning on an empty stomach Orally Once a day for 30 day(s) Active amLODIPine (NORVASC) 5 mg tablet Take 1 tablet (5 mg total) by mouth daily. Active furosemide (LASIX) 20 mg tablet Take 1 tablet (20 mg total) by mouth daily. Active sertraline (ZOLOFT) 50 mg tablet 1 tablet Orally Once a day for 30 day(s) Active lisinopriL (PRINIVIL,ZEST RIL) 40 mg tablet 1 tablet Orally Once a day for 30 day(s) Active atorvastatin (LIPITOR) 20 mg tablet TAKE 1 TABLET DAILY DIRECTED Active ADVAIR HFA 45-21 mcg/actuation inhaler inhale 2 puffs into the lungs twice a day for 30 days 5 Active cyanocobalamin 1,000 mcg/mL injection vial INJECT 1,000 MCG BY INTRAMUSCULAR ROUTE EVERY DAY X 1 WEEK THEN WEEKLY X 4WEEKS THEN ONCE A MONTH 5 Active Immunizations Immunization Administration Dates Next Due Tdap 12/08/2024 Social History Tobacco Use Types Packs/Day Years Used Date Smoking Tobacco: Never Assessed Interpersonal Safety Answer Date Record ed Is there anyone in your life that is hurting or threatening you in anyway? no 12/08/2024 Physical Indicators of Abuse No evidence of phys ical abuse 12/08/2024 Comments No Sex and Gender Information Value Date Recorded Sex Assigned at Not on file Legal Sex Female 2:59 PM EDT Gender Identity Not on file Sexual Orientation Not on file Last Filed Vital Signs Vital Sign Reading Time Taken Comments Blood Pressure 126/63 12/08/2024 4:40 PM EDT Pulse 76 12/08/2024 4:40 PM EDT Temperature 36.7 C (98.1 F) 12/08/2024 3:03 PM EDT Respiratory Rate 20 12/08/2024 4:40 PM EDT Oxygen Saturation 97% 12/08/2024 4:40 PM EDT Inhaled Oxygen Concentration - - Weight 65.3 kg (144 lb) 12/08/2024 3:03 PM EDT Height - - Body Mass Index - - Plan of Treatment Health Maintenance Due Date Last Done Comments HIV screening 12/27/1953 Lipid disorder screening 1978 Diabetes screening 12/27/1983 Pneumococcal Vaccine (50+ ye ars) (1 of 1 - PCV) 1988 Shingles vaccine (Shingrix) (1 of 2 - Shingrix (RZV) 2 Dose Standard Series) 1988 Osteoporosis screening (bone density) 12/27/2003 RSV Immunization (1 - 1-dose 75+ series) 2013 Influenza vaccine 03/21/2025 Covid-19 vaccine series ( - season) 2025 Tetanus adult (Td q 10,TDAP once) 12/08/2034 025 Cervical cancer screening Discontinued Colon cancer screening, Colonoscopy Discontinued Meningococcal B Vaccine Aged Out No l onger eligible based on patient's age to complete this topic Meningococcal Vaccine Aged Out No nery trinity eligible based on patient's age to complete this topic Insurance MEDICARE [facility] MEDICARE [facility] MEDICARE [employer] Care Teams Pipe Jeeper Relationship Specialty Start Date End Date Inocencio Ponce MD [address] [place] [phone] PCP - General Internal Medicine 12/08/24
--- OUTSIDE RECORDS SUMMARY | 2025-05-14 16:22 | XMS_ITS | Patient Health Record ---
Author Organization [facility] Address [address] [place] [address] Care Team Providers Care Supervisor Pit [employer] Auxiliaries Name Role Phone Inocencio Ponce MD Primary Care Provider Leandro Rodriguez Unavailable [phone] Allergies Allergen (clinical drug ingredient) Drug/Non Drug Allergy documented on EMR Reaction Allergy Type Onset Date Status Codeine Phosphate Unknown Drug Allergy Active Reason For Referral No Information Medications Medication SIG (Take, Route, Frequency, Duration) Notes Start Date End Date Status Symbicort 80-4.5 MCG/ACT 2 puffs Inhalat ion Twice a day Active Latanoprost 0.005 % 1 drop into affected eye in the evening Ophthalmic Once a day Active Dorzolamide-Timolol solution drops each eye twice a day Active Sertraline HCl 50 MG 1 tablet Orally Onc e a day Active Atorvastatin Calcium 20 MG 1 tablet Oral ly Once a day Active amLODIPine Besylate 10 MG 1 tablet Orall y Once a day Active Synthroid 100 MCG 1 tablet on an empty stomach in the morning Orally Once a day Active Lisinopril 40 MG 1 tablet Orally Once a day Active Albuterol Sulfate (2.5 MG/3ML) 0.083% 3 ml Inhalation Three times a day Active Immunizations Vaccine Route Administration Date Status Comme nts Influenza Unknown 05/21/2016 Administered Social History Alcohol Screen Question Answer Notes Did you have a drink containing alcohol in the p ast year? No Points 0 Interpretation Negative Section Notes: Nonsmoker; no alcohol Nonsmoker; no alcohol Problems Problem Type SNOMED Code ICD Code Onset Dates Problem Status W/U Status Risk Notes Problem 550254188 Encounter for screening for malignant neoplasm of colon (Z12.11) Active confirmed Problem 737621046 History of adenomatous polyp of colon (Z86.010) Active confirmed Plan Of Treatment Future Test Test Name Order Date COLONOSCOPY 12/08/2011 Insurance Providers Payer Name Payer Address Payer Phone Subscriber Number Group Number Insured Name Patient Relationship to Insured Coverage Start Date Coverage End Date MEDICARE OF [place] [address] [place] [id number] CORDELL MCLAUGHLIN Self - patient is the insured [employer] CLAIMS [address] [place] [address] [id number] CORDELL MCLAUGHLIN Self - patient is the insured Medical (General) History Medical History History ICD Code Hyperlipidemia Depression Hypothyroidism Asthma Denies HI,DM,CVA,renal disease Tubular adenomas removed in 2006--1 with high grade dysplasia; colonoscopy 12-29-2011 was negative except for hyperplastic polyps HTN Glaucoma Occasional epidural steroid injections Surgical History Surgery Date(Month/Year) Carpal tunnel Appendectomy Bladder suspension Left inguinal hernia Right hand surgery on right hand Surgery for a floating kidney
--- OUTSIDE RECORDS SUMMARY | 2025-05-14 16:22 | XMS_ITS | Patient Health Record ---
Author Organization [facility] Address [address] [place] [address] Care Team Providers Care Deicer Repairer Name Role Phone Inocencio Ponce MD Primary Care Provider Unavailab Kris Orosco Unavailable [phone] Allergies Allergen (clinical drug ingredient) Drug/Non Drug Allergy documented on EMR Reaction Allergy Type Onset Date Status codeine Codeine vomiting Drug Allergy Active Reason For Referral No Information Medications Medication SIG (Take, Route, Frequency, Duration) Notes Start Date End Date Status amLODIPine Besylate 5 MG 1 tablet Orally Once a day; Duration: 30 day(s) Active Furosemide 20 MG 1 tablet Orally Once a day; Duration: 30 day(s) Active Atorvastatin Calcium 20 MG 1 tablet Oral ly Once a day; Duration: 30 day(s) Active Lisinopril 40 MG 1 tablet Orally Once a day; Duration: 30 day(s) Active Synthroid 100 MCG 1 tablet in the morn ing on an empty stomach Orally Once a day; Duration: 30 day(s) Active Symbicort Active Sertraline HCl 50 MG 1 tablet Orally Onc e a day; Duration: 30 day(s) Active Immunizations Vaccine Route Administration Date Status Comme nts COVID-19 Pfizer BioNTech Vaccine Unknown 07/26/2021 Administered 1st 09/27/2020 2nd 10/19/2020 Social History Tobacco Use: Social History Observation Description Date Details (start date - stop date) Former Smoker NA - NA Tobacco Use/Smoking Question Answer Notes Are you a: former smoker Additional Findings: Tobacco Non-User Current no n-smoker Alcohol Screen Question Answer Notes Did you have a drink containing alcohol in the p ast year? No Points 0 Interpretation Negative Tobacco use other than smoking: Question Answer Notes Are you an other tobacco user? No Problems Problem Type SNOMED Code ICD Code Onset Dates Problem Status W/U Status Risk Notes Problem Bilateral atherosclerosis of arteries of lower limbs (disorder) ([id number] ) Atherosclerosis of tanana artery of both lower extremities, with unspecified presence of clinical manifestation (I70.203) Active confirmed Plan Of Treatment Pending Test Test Name Order Date X ray : Foot, left 3V 03/18/2022 X ray : Foot, right 3V 03/18/2022 [id number] NAIL, 6 OR MORE 03/18/2022 [id number] NAIL, 6 OR MORE 06/14/2022 [id number] NAIL, 6 OR MORE 10/21/2022 [id number] NAIL, 6 OR MORE 01/27/2023 [id number] NAIL, 6 OR MORE 05/09/2023 [id number] NAIL, 6 OR MORE 08/11/2023 [id number] NAIL, 6 OR MORE 12/05/2023 [id number] NAIL, 6 OR MORE 03/05/2024 [id number] SKIN LESIONS, 2 TO 4 03/05/20 24 04866-HPYD SKIN LESIONS, 2 TO 4 12/05/19 24 25034-QNSS SKIN LESIONS, 2 TO 4 08/11/20 23 60737-ANRQ SKIN LESIONS, 2 TO 4 05/09/20 23 93834-FGFH SKIN LESIONS, 2 TO 4 01/28/20 23 73906-XZCM SKIN LESIONS, 2 TO 4 10/22/19 23 49832-SSSM SKIN LESIONS, 2 TO 4 06/14/20 22 59502-MUYJ SKIN LESIONS, 2 TO 4 03/18/20 22 Insurance Providers Payer Name Payer Address Payer Phone Subscriber Number Group Number Insured Name Patient Relationship to Insured Coverage Start Date Coverage End Date Medicare National [employer] [address] [place] [address] [id number] Josselyn Velasco Self - patient is the insured [employer] [address] [place] [address] [id number] Josselyn Velasco Self - patient is the insured Medical (General) History Medical History History ICD Code Arthritis asthma Back,Hip,and Knee pain Cholesterol Cataracts Gall bladder problems Glaucoma High blood pressure Macular degeneration Sciatica Stomach ulcer thyroid Measles Mumps Chicken pox Surgical History Surgery Date(Month/Year) back surgery Hand Surgery gall bladder Epidural steroid injections, Spine every 3 months 2021 Hospitalization History Reason Date(Month/Year) ER strained back muscle same day med giv en 02/12/22
--- OUTSIDE RECORDS SUMMARY | 2025-05-14 16:22 | XMS_ITS ---
Author Name [facility] Organization Unknown Encounters Encounter Type Encounter Reason Primary Diagnosis Location Date Emergency Head injury, unspecified Head injury, unspecified [facility] 12/08/2024 Care Team Organization Name Specialty Phone Email Start Date End Da mark [facility] Primary [facility] 12/08/2024 [facility] 12/08/2024
--- OUTSIDE RECORDS SUMMARY | 2025-05-14 16:22 | XMS_ITS | Clinical Summary ---
Author Organization [facility] Address [address] [address] Care Team Providers Care Cat Scanner Operator Name Role Phone Inocencio Ponce MD Primary Care Provider [phone] Social History Tobacco Use Types Packs/Day Years Used Date Smoking Tobacco: Never Assessed Comments Unknown Sex and Gender Information Value Date Recorded Sex Assigned at Not on file Legal Sex Female 2:54 PM EDT Gender Identity Not on file Sexual Orientation Not on file Plan of Treatment Health Maintenance Due Date Last Done Comments Pneumococcal Vaccine: 50+ Ye ars (1 of 1 - PCV) 1988 Influenza Vaccine (#1) 2025 Hepatitis B Vaccine Aged Out No longe r eligible based on patient's age to complete this topic Insurance Medicare [facility] Care Teams Cat Scanner Operator Relationship Specialty Start Date End Date Inocencio Ponce MD [address] [place] [address] PCP - General Internal Medicine 04/25/24
== END 2025-05-14 13:52 | disposition home or self-care (01) ==
LOC: HO.MAMMO 13:51
PROVIDERS: PCP Internal Medicine; Visit Provider Internal Medicine
DX: Z12.31 Encounter for screening mammogram for malignant neoplasm of breast (principal)
CPT/HCPCS: 77063; 77067

== ENCOUNTER → 2025-05-14 14:00 | Outpatient (BNV) | payer MEDICARE, SELFPAY | PROVIDERS: PCP Internal Medicine; Visit Provider Radiology Body Imaging | DX: Z12.31 Encounter for screening mammogram for malignant neoplasm of breast (principal) | CPT/HCPCS: 77063; 77067 ==

== ENCOUNTER 2025-06-23 14:28 | Outpatient (REF) | payer MEDICARE, SELFPAY ==
--- NOTE | ~2025-06-23 | MM_ITS ---
EXAMINATION(S): MM DIAGNOSTIC DIGITAL BREAST TOMOSYNTHESIS, RIGHT CLINICAL INFORMATION: Callback from screening for right breast asymmetry in the upper breast middle depth. COMPARISON: Comparison made to multiple prior, most recent May 14, 2025, and most remote August 28, 2018. TECHNIQUE: Digital breast tomosynthesis is performed in full field ML 90 degrees along with computer-aided detection (CAD). Synthesized 2D images are generated from the tomosynthesis. Spot compression tomosynthesis were obtained. FINDINGS: BREAST COMPOSITION: There are scattered areas of fibroglandular density. RIGHT BREAST: Previously suggested asymmetry in the upper breast middle depth is pliable with spot compression. On today's images, the local parenchyma is similar to multiple prior studies as far back as 2018, therefore most likely represented overlapping fibroglandular breast tissue. MM/MM tomosynthesis added views R IMPRESSION: RIGHT BREAST: Negative, no mammographic evidence of malignancy. Normal interval follow-up is recommended in 12 months. ASSESSMENT: BI-RADS: Category 1: Negative RECOMMENDATION: 1 year F/U Results were provided to the patient at time of visit by the technologist. This patient's information was entered into a reminder system with a target due date for their next mammogram. Electronically signed by: Randolph Funk MD 06/23/2025 03:02 PM SANTY FRANCO
== END 2025-06-23 14:29 | disposition home or self-care (01) ==
LOC: HO.MAMMO 14:28
PROVIDERS: PCP Internal Medicine; Visit Provider Internal Medicine
DX: N64.89 Other specified disorders of breast (principal)
CPT/HCPCS: 77061; 77065

== ENCOUNTER → 2025-06-23 14:30 | Outpatient (BNV) | payer MEDICARE, SELFPAY | PROVIDERS: PCP Internal Medicine; Visit Provider Radiology Body Imaging | DX: R92.8 Other abnormal and inconclusive findings on diagnostic imaging of breast (principal) | CPT/HCPCS: 77065; G0279 ==